=== PATIENT | female | born 1965 | race Caucasian/White ===

== ENCOUNTER 2019-10-02 18:59 | Emergency (ER) | payer OTHER ==
[2019-10-02 19:10] VITALS: BP 113/66; PULSE 86; BMI 21.4
[2019-10-02] MEDS ORDERED: ACETAMINOPHEN 500 MG TABLET (FP) PO ONE (19:44)
--- NOTE | 2019-10-02 20:08 | PDOC ---
History of Present Illness - General Chief Complaint: Laceration Stated Complaint: LACERATION Time Seen by Provider: 10/02/19 19:18 History Source: Patient Exam Limitations: No Limitations - History of Present Illness Initial Comments: 10/02/19 20:40 HISTORY OF PRESENT ILLNESS: 54-year-old woman with past medical history of hypothyroidism presents emergency department for evaluation of laceration to right palm immediately prior to arrival. Patient reports knife was falling off the table and she went to grab it when the tip of the knife punctured her right palm. Patient remove the knife immediately and irrigated her wound. She applied a pressure bandage to her hand and came to the emergency department for evaluation. Patient reports her last tetanus shot was 2 years ago when she sustained another accidental laceration. Patient is right-hand dominant. No recent travel or sick contacts. PAST MEDICAL HISTORY: See HPI SURGICAL HISTORY: Denies ALLERGIES: Methimazole REVIEW OF SYSTEMS General/Constitutional: Denies fever or chills. Denies weakness, weight change. HEENT: Denies change in vision. Denies ear pain or discharge. Denies sore throat. Cardiovascular: Denies chest pain or shortness of breath. Respiratory: Denies cough, wheezing, or hemoptysis. Gastrointestinal: Denies nausea, vomiting, diarrhea or constipation. Denies rectal bleeding. Genitourinary: Denies dysuria, frequency, or change in urination. Musculoskeletal: see HPI Skin and breasts: see HPI Neurologic: Denies headache, vertigo, loss of consciousness, or loss of sensation. Psychiatric: Denies depression or anxiety. Endocrine: Denies increased thirst. Denies abnormal weight change. Hematologic/Lymphatic: Denies anemia, easy bleeding, or history of blood clots. Allergic/Immunologic: Denies hives or skin allergy. Denies latex allergy. PHYSICAL EXAM General Appearance: Well-appearing, appropriately dressed. No apparent distress , no intoxication. Musculoskeletal/Extremities: Normal inspection. FROM of all extremities, normal capillary refill. Pelvis Stable. No CVA tenderness. No tenderness to extremities, pedal edema, swelling, erythema or deformity. Approximate 1.5 cm linear superficial laceration present to the ulnar aspect of the right volar hand. Hemostasis achieved prior to arrival. Full flexion and extension of all digits. Full sensation present distal to injury. Integumentary: See musculoskeletal assessment Past History - Past Medical History Allergies/Adverse Reactions: Allergies Allergy/AdvReac Type Severity Reaction Status Date / Time methimazole [From Tapazole] Allergy Verified 10/02/19 19:10 COPD: No Thyroid Disease: Yes (hypo) - Immunization History Immunization Up to Date: Yes - Psycho Social/Smoking Cessation Hx Smoking History: Never smoked *Physical Exam - Vital Signs Last Vital Signs Temp Pulse Resp BP Pulse Ox 86 18 113/66 99 10/02/19 19:05 10/02/19 19:05 10/02/19 19:05 10/02/19 19:05 Procedures - Consent Consent obtained: Verbal, From Patient - Laceration/Wound Repair Right Volar Hand Wound Length: to 2.5 cm Wound Explored: clean Wound's Depth, Shape: superficial, linear Irrigated w/ Saline: Yes Betadine Prep: Yes Anesthesia: 2% Lidocaine Amount of Anesthetic (ccs): 6 Wound Debrided: moderate Wound Repaired With: Sutures Suture Size/Type: 4:0, nylon Layer Closure: No Sterile Dressing Applied: Yes Splint Applied: No Progress: 10/02/19 20:38 Patient tolerated well ED Treatment Course - RADIOLOGY Radiology Studies Ordered: Category Date Time Status HAND- RIGHT [RAD] Stat Radiology 10/02/19 19:13 Taken Medical Decision Making - Medical Decision Making 10/02/19 20:38 A/P: 54-year-old woman with laceration to right palm Proximate 1.5 cm linear superficial laceration present to the volar aspect of the right hand on the ulnar aspect of the palm. Wound probed and unable to contact bone. Hemostasis is achieved prior to arrival Last tetanus shot was approximately 2 years ago from another accidental laceration X-rays of the right hand: No acute fractures or dislocations present. Laceration repair-see procedure note for details Discharge home Portions of this note have been documented using voice recognition software. As a result, errors may occur in the math professor process. Effort has been made to correct all grammatical and math professor error, but some may have been missed which may produce sporadic inaccurate math professor or nonsensical phrases. Discharge - Discharge Information Problems reviewed: Yes Clinical Impression/Diagnosis: Laceration of right palm Qualifiers: Encounter type: initial encounter Qualified Code(s): S61.411A - Laceration without foreign body of right hand, initial encounter Condition: Stable Disposition: HOME - Admission No - Follow up/Referral Referrals: Khurram Stephenson [Primary Care Provider] - - Patient Discharge Instructions Additional Instructions: Keep wound clean and dry Avoid strenuous activity/exercise to create a hot or sweaty environment until sutures are removed Reapply bacitracin ointment 2 times a day until sutures are removed Return to emergency Department or private physician in 5-7 days for suture removal May use Tylenol or Motrin for pain relief Return immediately to emergency department for redness, swelling, pain, or signs of infection - Post Discharge Activity Work/Back to School Note: Back to Work
== END 2019-10-02 20:09 | disposition home or self-care (01) ==
LOC: JERFT 18:59
PROC: 0HQFXZZ Repair Right Hand Skin, External Approach (ICD-10-PCS; principal; 2019-10-02)
DX: S61.411A Laceration without foreign body of right hand, initial encounter (principal); W26.0XXA Contact with knife, initial encounter; Y93.89 Activity, other specified; Y92.038 Other place in apartment as the place of occurrence of the external cause; Y99.8 Other external cause status
CPT/HCPCS: 73130-TC-RT-FY; 99283-25

== ENCOUNTER 2020-11-30 08:16 | Day surgery (SDC) | payer OTHER ==
[2020-11-05 13:56] VITALS: BMI 20.9
[~2020-11-30 08:16] MED LIST: BUPIVACAINE HCL/PF 0.25% (2.5MG/ML) 10 ML VIAL IJ ONE
[2020-11-30] MEDS ORDERED: BUPIVACAINE HCL/PF 2.5 MG/ML - 30 ML VIAL IJ ONE (11:30)
[2020-11-30] MEDS ORDERED: MIDAZOLAM HCL 2 MG/2 ML SINGLE DOSE VIAL ONE (11:34)
[2020-11-30] MEDS ORDERED: SUCCINYLCHOLINE CHLORIDE 200 MG/10 ML SYRINGE ONE (11:37)
[2020-11-30] MEDS ORDERED: PROPOFOL 20 ML ONE (11:37)
[2020-11-30] MEDS ORDERED: ceFAZolin SODIUM 1 GM VIAL ONE (12:22)
[2020-11-30] MEDS ORDERED: KETOROLAC TROMETHAMINE 30 MG/1 ML VIAL ONE (12:22)
[2020-11-30] MEDS ORDERED: ONDANSETRON 4 MG/2 ML VIAL ONE (12:22)
[2020-11-30] MEDS ORDERED: LIDOCAINE HCL 2% JELLY (5 ML/TUBE) ONE (12:22)
[2020-11-30] MEDS ORDERED: DEXAMETHASONE SOD PHOSPHATE 4 MG/1 ML VIAL ONE (12:22)
[2020-11-30] MEDS ORDERED: BUPIVACAINE HCL/PF 0.25% (2.5MG/ML) 10 ML VIAL IJ ONE (12:28)
[2020-11-30] MEDS ORDERED: ONDANSETRON 4 MG/2 ML VIAL IVPUSH PRN (12:37)
[2020-11-30] MEDS ORDERED: oxyCODONE HCL 5 MG TABLET PO PRN ×2 (12:37)
[2020-11-30] MEDS ORDERED: PROMETHAZINE HCL 25 MG/1 ML VIAL IVPUSH PRN (12:37)
[2020-11-30 14:20] VITALS: BP 114/52; PULSE 62; TEMP 97.8
== END 2020-11-30 14:20 | disposition home or self-care (01) ==
LOC: FASU 08:16
PROVIDERS: ATTEND Orthopaedic Surgery
PROC: 0SBD4ZZ Excision of Left Knee Joint, Percutaneous Endoscopic Approach (ICD-10-PCS; 2020-11-30)
PROC: 0SBD4ZZ Excision of Left Knee Joint, Percutaneous Endoscopic Approach (ICD-10-PCS; 2020-11-30)
PROC: 0SBD4ZZ Excision of Left Knee Joint, Percutaneous Endoscopic Approach (ICD-10-PCS; principal; 2020-11-30 11:57)
DX: M23.8X2 Other internal derangements of left knee (principal); S83.242A Other tear of medial meniscus, current injury, left knee, initial encounter; S83.282A Other tear of lateral meniscus, current injury, left knee, initial encounter; S83.8X2A Sprain of other specified parts of left knee, initial encounter; M65.862 Other synovitis and tenosynovitis, left lower leg; Y93.9 Activity, unspecified
CPT/HCPCS: 88304-TC; 94760